=== PATIENT | male | born 1995 | race African-American/Black ===

== ENCOUNTER 2019-07-19 13:06 | Emergency (ER) | payer MEDICAID, OTHER ==
[~2019-07-19] VITALS: Ht 175.3 cm; Wt 62.6 kg
[2019-07-19] MEDS ORDERED: SODIUM CHLORIDE 0.9% 1,000 ML IV ONE (13:10)
[2019-07-19] MEDS ORDERED: HYDROmorphone HCL 2 MG/ML VL IV ONE ×2 (13:15→14:15)
[2019-07-19] MEDS ORDERED: ONDANSETRON HCL 4 MG/2 ML VIAL IV ONE (13:15)
[2019-07-19] MEDS ORDERED: ceFAZolin 1GM/50ML 50 ML IV ONE (13:15)
[2019-07-19 13:22] LABS: Basophils # (auto) 0.1 uL; Basophils % (auto) 1.3 % (0.0-2.0); Eosinophils # (auto) 0.2 uL; Eosinophils % (auto) 3.6 % (0.0-7.0); Hematocrit 48.9 % (41.0-53.0); Hemoglobin 16.1 g/dL (13.5-17.5); Lymphocytes # (auto) 2.7 uL; Lymphocytes % (auto) 45.2 % (10.0-50.0); Monocytes # (auto) 0.8 uL; Monocytes % (auto) 13.7 % (0.0-12.0); Neutrophils # (auto) 2.2 uL; Neutrophils % (auto) 36.2 % (37.0-80.0); Nucleated Red Blood Cells % 0.1 %; Platelet Count (auto) 184 10^3/uL (140-450); Red Cell Distribution Width 14.5 % (11.8-14.3)
[2019-07-19 13:39] LABS: Albumin 4.5 g/dL (3.4-5.0); Calcium 9.6 mg/dL (8.5-10.1)
[2019-07-19 13:41] LABS: BUN/Creatinine Ratio 7.4
[2019-07-19 13:44] LABS: Bilirubin, Total 0.7 mg/dL (0.2-1.0); Total Protein 8.7 g/dL (6.4-8.2)
[2019-07-19 13:51] LABS: INR 1.15 (0.9-1.15); Partial Thromboplastin Time 24.1 sec (23.64-32.05)
[2019-07-19 13:53] LABS: Potassium 2.9 mmol/L (3.5-5.1)
[2019-07-19] MEDS ORDERED: TETANUS-DIPTH-ACEL PERTUSSIS 0.5ML SYRG IM ONE (14:00)
[2019-07-19 14:52] VITALS: BP 128/76
[2019-07-19] MEDS ORDERED: MORPHINE SULFATE 4 MG/ML SYR/VIAL IV ONE (15:00)
== END 2019-07-19 15:16 | disposition short-term general hospital (02) ==
LOC: ER 13:08
DX: S62.391A Other fracture of second metacarpal bone, left hand, initial encounter for closed fracture (principal); S82.832A Other fracture of upper and lower end of left fibula, initial encounter for closed fracture; W34.00XA Accidental discharge from unspecified firearms or gun, initial encounter; Y93.89 Activity, other specified; Y92.89 Other specified places as the place of occurrence of the external cause; Y99.8 Other external cause status
CPT/HCPCS: 36415; 73120; 73590; 80053; 85025; 85610; 85730; 90471; 90715; 96365; 96375; 96376; 99285; J0690; J1170; J2270; J2405; J7030